=== PATIENT | female | born 1960 | race African-American/Black ===

== ENCOUNTER 2019-05-08 07:20 | Emergency (ER) | payer OTHER ==
[2019-05-08 07:36] VITALS: BMI 34.7
--- NOTE | 2019-05-08 07:43 | PDOC ---
History of Present Illness - General Chief Complaint: Pain Stated Complaint: ABDOMINAL PAIN Time Seen by Provider: 05/08/19 07:27 History Source: Patient Exam Limitations: No Limitations - History of Present Illness Initial Comments: 05/08/19 07:45 CHIEF COMPLAINT: Suprapubic and right lower quadrant pain 3 weeks HISTORY OF PRESENT ILLNESS: This is a previously healthy 58-year-old female, status post cholecystectomy in the past, who presents complaining of suprapubic and right lower quadrant pain. The symptoms started about 3 weeks ago. She went to see her resistor winder, Dr. Yi in [place]. The resistor winder examined her, did an ultrasound which he told her was normal, and prescribed doxycycline antibiotics for an infection, unspecified. Patient states she felt somewhat better on the doxycycline, had some mild diarrhea, but that resolved. Since completing the antibiotics, the pain has returned and become worse. The pain is in the suprapubic and right lower quadrant region and radiates around the right flank, in the lower lumbar region. The pain at times is somewhat constant, worse in the morning, but does not interrupt sleep. Bowel movements have been normal. Patient states mild increase in frequency of urination, but no burning or hematuria. There is no nausea or vomiting. There is no change in appetite, and patient states she has been gaining a few pounds recently. Her appetite remains very good. There is no fever or chills. REVIEW OF SYSTEMS: GENERAL/CONSTITUTIONAL: No fever or chills. No weakness. Mild increase in weight with good appetite. HEAD, EYES, EARS, NOSE AND THROAT: No change in vision. No ear pain or discharge. No sore throat. CARDIOVASCULAR: No chest pain or shortness of breath. RESPIRATORY: No cough, wheezing, or hemoptysis. GASTROINTESTINAL: No nausea, vomiting, diarrhea or constipation. No rectal bleeding. (+) Positive abdominal pain in the right lower quadrant. GENITOURINARY: No dysuria, but (+) frequency. No hematuria. MUSCULOSKELETAL: No joint or muscle swelling or pain. No neck pain. (+) Radiating Back pain. SKIN AND BREASTS: No rash or easy bruising. NEUROLOGIC: No headache, vertigo, loss of consciousness, or loss of sensation. PSYCHIATRIC: No depression or anxiety. ENDOCRINE: No increased thirst. No abnormal weight change. HEMATOLOGIC/LYMPHATIC: No anemia, easy bleeding, or history of blood clots. ALLERGIC/IMMUNOLOGIC: No hives or skin allergy. No latex allergy. Past History - Past Medical History Allergies/Adverse Reactions: Allergies Allergy/AdvReac Type Severity Reaction Status Date / Time No Known Allergies Allergy Verified 05/08/19 07:29 Home Medications: Ambulatory Orders NK [No Known Home Medication] 11/17/15 Asthma: No (denies hx of asthma) COPD: No Kidney Stones: No (no hx of stones) - Surgical History Cholecystectomy: Yes - Immunization History Td Vaccination: No - Psycho Social/Smoking Cessation Hx Smoking Status: No Smoking History: Never smoked Number of Cigarettes Smoked Daily: 0 Hx Alcohol Use: No Drug/Substance Use Hx: No Substance Use Type: None *Physical Exam - Vital Signs Last Vital Signs Temp Pulse Resp BP Pulse Ox 98.1 F 71 16 138/73 100 05/08/19 07:27 05/08/19 07:27 05/08/19 07:27 05/08/19 07:27 05/08/19 07:27 - Physical Exam Comments: 05/08/19 07:51 GENERAL: The patient is awake, alert, and fully oriented, appears mildly uncomfortable, leaning to the right with right lower quadrant pain. HEAD: Normal with no signs of trauma. EYES: Pupils equal, round and reactive to light, extraocular movements intact, sclera anicteric, conjunctiva clear. ENT: Ears normal, nares patent, oropharynx clear without exudates. Moist mucous membranes. NECK: Normal range of motion, supple without lymphadenopathy, JVD, or masses. LUNGS: Breath sounds equal, clear to auscultation bilaterally. No wheezes, and no crackles. HEART: Regular rate and rhythm, normal S1 and S2 without murmur, rub or gallop. ABDOMEN: Abdomen is mildly obese, soft, with (+) tenderness in the midline suprapubic region and throughout the right lower quadrant. There is no guarding or rebound tenderness. There is no flank tenderness posteriorly. EXTREMITIES: Normal range of motion, no edema. No clubbing or cyanosis. No cords, erythema, or tenderness. NEUROLOGICAL: Cranial nerves II through XII grossly intact. Normal speech, normal gait. PSYCH: Normal mood, normal affect. SKIN: Warm, Dry, normal turgor, no rashes or lesions noted. ED Treatment Course - LABORATORY CBC & Chemistry Diagram: 05/08/19 07:50 05/08/19 07:50 Medical Decision Making - Medical Decision Making 05/08/19 10:19 58-year-old female with a history of cholecystectomy in the past presents complaining of 3 weeks of lower abdominal pain in the suprapubic and right lower quadrant regions. There are no associated bowel or bladder symptoms. There is no fever and no change in appetite. On examination, there is right lower quadrant tenderness without guarding or rebound. There are no masses. There is no CVA tenderness. Initial impression was right lower quadrant tenderness and pain for 3 weeks. Differential diagnosis includes, acute appendicitis, right-sided diverticulitis , kidney stone, or other intra-abdominal pathology. Workup was initiated with labs, urinalysis, and CT scan with IV contrast. Laboratory studies reviewed. Blood cell count is normal at 5.2 with no left shift. Chemistry including renal and liver function is normal. Urinalysis is negative for hematuria or pyuria. CT scan of the abdomen and pelvis with IV contrast was performed and reviewed by me. Final radiology reading was reviewed as well. There are no signs of appendicitis. There are no signs of colonic inflammation. There is a radiodense structure in the left descending colon in the region of the splenic flexure, possibly representing something that she ate, but no associated signs of colonic inflammation or obstruction. Essentially, the CT scan is negative for any acute pathology. Final impression: 3 weeks of suprapubic and left lower quadrant pain without evidence of serious etiology as a cause for the pain. Final diagnosis is nonspecific left lower quadrant abdominal pain. Patient states she will follow- up with her primary care physician in the next few days, with a copy of all of her lab and imaging results, as I have instructed her. Laboratory Results - last 24 hr 05/08/19 05/08/19 05/08/19 07:50 07:50 07:50 WBC 5.2 RBC 4.32 Hgb 12.9 Hct 39.5 MCV 91.4 MCH 29.8 MCHC 32.6 RDW 13.2 Plt Count 196 MPV 9.9 Absolute Neuts (auto) 1.9 Neutrophils % 36.9 L Lymphocytes % 52.9 H Monocytes % 8.4 Eosinophils % 1.2 Basophils % 0.6 Sodium 139 Potassium 4.2 Chloride 104 Carbon Dioxide 28 Anion Gap 7 L BUN 12.0 Creatinine 0.7 Est GFR (CKD-EPI)AfAm 112.26 Est GFR (CKD-EPI)NonAf 96.86 Random Glucose 108 H Calcium 8.9 Total Bilirubin 0.8 AST 31 ALT 34 Alkaline Phosphatase 90 Total Protein 7.1 Albumin 3.8 Urine Color Yellow Urine Appearance Clear Urine pH 6.0 Urine Protein Negative Urine Glucose (UA) Negative Urine Ketones Negative Urine Blood Negative Urine Nitrite Negative Urine Bilirubin Negative Urine Urobilinogen 0.2 Ur Leukocyte Esterase Negative Discharge - Discharge Information Problems reviewed: Yes Clinical Impression/Diagnosis: Right lower quadrant abdominal pain Condition: Good Disposition: HOME - Admission No - Follow up/Referral Referrals: Ciera Garces [Primary Care Provider] - 2 Days - Patient Discharge Instructions Patient Printed Discharge Instructions: DI for Abdominal Pain-Adult Additional Instructions: Today you were evaluated for lower abdominal pain. All of the testing results came out negative. The urine shows no infection. The blood tests showed a normal white blood cell count, also suggesting no infection. The liver and kidney function tests were normal. The CT scan of the abdomen and pelvis showed no signs of appendicitis or diverticulitis. It is recommended you take Tylenol as needed and follow up with your primary care physician in 48 hours, bringing a copy of all of your results to the appointment for review and follow-up. If you have severe pain, return to the emergency department for reevaluation. - Post Discharge Activity Work/Back to School Note: Back to Work
[2019-05-08] MEDS ORDERED: SODIUM CHLORIDE 1,000 ML IV SCH (07:45)
[2019-05-08] MEDS ORDERED: ACETAMINOPHEN 1000 MG/100 ML VIAL (NON FORMULARY) IVPB ONE (08:08)
[2019-05-08] MEDS ORDERED: ACETAMINOPHEN INJECTION 100 ML IVPB ONE (08:09)
[2019-05-08 08:46] LABS: BASO % 0.6 % (0-2.0); EOS % 1.2 % (0-4.5); HEMATOCRIT 39.5 % (32.4-45.2); HEMOGLOBIN 12.9 GM/dl (10.7-15.3); LYMPH % 52.9 % (8-40); MCH 29.8 pg (25.7-33.7); MCHC 32.6 g/dl (32.0-36.0); MEAN CELL VOLUME 91.4 fl (80-96); MEAN PLT VOLUME 9.9 fl (7.5-11.1); MONO % 8.4 % (3.8-10.2); NEUT % 36.9 % (42.8-82.8); PLATELET COUNT 196 K/MM3 (134-434); RBC 4.32 M/mm3 (3.60-5.2); RDW 13.2 % (11.6-15.6); WHITE BLOOD COUNT 5.2 K/mm3 (4.0-10.8)
[2019-05-08 08:53] LABS: ALBUMIN 3.8 g/dl (3.4-5.0); BILIRUBIN,TOTAL 0.8 mg/dl (0.2-1); CALCIUM 8.9 mg/dl (8.5-10); CREATININE 0.7 mg/dl (0.55-1.3); POTASSIUM 4.2 mmol/L (3.5-5.1); TOT PROT 7.1 g/dl (6.4-8.2)
[2019-05-08 09:58] VITALS: BP 127/74; PULSE 58; TEMP 97.7
== END 2019-05-08 10:40 | disposition home or self-care (01) ==
LOC: FER 07:20
PROC: 3E033NZ Introduction of Analgesics, Hypnotics, Sedatives into Peripheral Vein, Percutaneous Approach (ICD-10-PCS; principal; 2019-05-08)
PROC: 3E0337Z Introduction of Electrolytic and Water Balance Substance into Peripheral Vein, Percutaneous Approach (ICD-10-PCS; 2019-05-08)
DX: R10.31 Right lower quadrant pain (principal)
CPT/HCPCS: 36415; 74177-TC; 80053; 81003; 85025; 99283-25; J0131; J7030

== ENCOUNTER 2022-07-09 15:24 | Emergency (ER) | payer OTHER ==
[2022-07-09 15:31] VITALS: BP 138/77; PULSE 71; RESP 18; TEMP 98.9; BMI 37.1
[2022-07-09] MEDS ORDERED: LIDOCAINE 5% TOPICAL PATCH TP ONE (16:13)
[2022-07-09] MEDS ORDERED: METHOCARBAMOL 500 MG TABLET PO ONE (16:13)
[2022-07-09] MEDS ORDERED: METHOCARBAMOL 500 MG TABLET ONE (16:20)
[2022-07-09] MEDS ORDERED: LIDOCAINE 5% TOPICAL PATCH ONE (16:21)
[2022-07-09] MEDS ORDERED: LIDOCAINE PATCH REMOVAL MC SCH (22:00)
== END 2022-07-09 16:33 | disposition home or self-care (01) ==
LOC: FER 15:24
DX: M54.41 Lumbago with sciatica, right side (principal)
CPT/HCPCS: 99283-25

== ENCOUNTER 2024-06-12 18:57 | Emergency (ER) | payer OTHER ==
[2024-06-12 19:20] VITALS: BP 136/89; PULSE 83; RESP 20; TEMP 99.1; BMI 30.7
[2024-06-12] MEDS ORDERED: ONDANSETRON 4 MG/2 ML VIAL ONE (19:37)
[2024-06-12] MEDS ORDERED: PANTOPRAZOLE SODIUM 40 MG VIAL ONE (19:37)
[2024-06-12] MEDS: SODIUM CHLORIDE 1,000 ML IV ONE (19:48)
[2024-06-12] MEDS: PANTOPRAZOLE SODIUM 40 MG VIAL IVPUSH ONE (19:48)
[2024-06-12] MEDS: ONDANSETRON 4 MG/2 ML VIAL IVPB ONE (19:49)
[2024-06-12 20:11] LABS: HEMATOCRIT 43.9 % (32.4-45.2); HEMOGLOBIN 14.4 G/dL (10.7-15.3); MCH 29.6 pg (25.7-33.7); MCHC 32.7 g/dl (32.0-36.0); MEAN CELL VOLUME 90.7 fl (80-96); PLATELET COUNT 182.7 10^3/uL (134-434); RBC 4.84 10^6/uL (3.60-5.2); RDW 13.7 % (11.6-15.6); WHITE BLOOD COUNT 6.5 10^3/uL (4.0-10.8)
[2024-06-12 20:35] LABS: ALBUMIN 4.6 g/dl (3.4-5.0); BILIRUBIN,TOTAL 0.8 mg/dl (0.2-1); CALCIUM 9.9 mg/dl (8.5-10.1); CREATININE 0.7 mg/dl (0.6-1.3); TOT PROT 7.8 g/dl (6.4-8.2)
[2024-06-12] MEDS ORDERED: ONDANSETRON *ODT* 4 MG TABLET ONE (21:03)
[2024-06-12] MEDS: ONDANSETRON *ODT* 4 MG TABLET SL ONE (21:04)
== END 2024-06-12 21:07 | disposition home or self-care (01) ==
LOC: FER 18:57
PROC: 3E033GC Introduction of Other Therapeutic Substance into Peripheral Vein, Percutaneous Approach (ICD-10-PCS; principal; 2024-06-12)
PROC: 3E033GC Introduction of Other Therapeutic Substance into Peripheral Vein, Percutaneous Approach (ICD-10-PCS; 2024-06-12)
PROC: 3E0337Z Introduction of Electrolytic and Water Balance Substance into Peripheral Vein, Percutaneous Approach (ICD-10-PCS; 2024-06-12)
DX: R10.13 Epigastric pain (principal); R11.0 Nausea
CPT/HCPCS: 36415; 80053; 82550; 82553; 83690; 84484; 85027; 93005; 99284-25; Q0162

== ENCOUNTER 2025-01-07 12:40 | Emergency (ER) | payer OTHER ==
[2025-01-07 12:55] VITALS: BP 121/64; PULSE 65; RESP 18; TEMP 98.6; BMI 30.7
[2025-01-07] MEDS ORDERED: ACETAMINOPHEN INJECTION 100 ML ONE (13:26)
[2025-01-07] MEDS ORDERED: LIDOCAINE 5% TOPICAL PATCH ONE (13:26)
[2025-01-07] MEDS: LIDOCAINE 5% TOPICAL PATCH TP ONE (13:36)
[2025-01-07] MEDS: ACETAMINOPHEN 1000 MG/100 ML BAG IVPB ONE (13:36)
[2025-01-07 13:39] LABS: ABSOLUTE IMMATURE GRANULOCYTES 0.01 x10^3/uL (0.0-0.031); BASOPHILS # 0.02 x10^3/uL (0.01-0.08); EOSINOPHIL % 1.3 % (0.7-5.8); EOSINOPHILS # 0.06 x10^3/uL (0.04-0.36); HEMATOCRIT 36.8 % (34.1-44.9); HEMOGLOBIN 11.8 g/dL (11.2-15.7); MCHC 32.1 g/dl (32.2-35.5); MEAN CELL VOLUME 92.2 fl (79.4-94.8); MEAN PLT VOLUME 11.5 fl (9.4-12.3); MONOCYTE # 0.35 x10^3/uL (0.24-0.86); MONOCYTE % 7.5 % (4.7-12.5); PLATELET COUNT 175 x10^3/uL (182-369); RDW 13.3 % (12.4-16.4)
[2025-01-07 13:51] LABS: INR 1.04 (0.83-1.09); PROTHROMBIN TIME (PATIENT) 11.5 SEC (9.7-13.0)
[2025-01-07 13:54] LABS: ACTIVATED PTT 30.7 SECONDS (25.2-36.5)
[2025-01-07 14:00] LABS: ALBUMIN 4.1 g/dl (3.4-5.0); BILIRUBIN,TOTAL 0.5 mg/dl (0.2-1); CALCIUM 9.3 mg/dl (8.5-10.1); CREATININE 0.8 mg/dl (0.6-1.3); TOT PROT 6.5 g/dl (6.4-8.2)
[2025-01-07] MEDS ORDERED: KETOROLAC TROMETHAMINE 15 MG/ML VIAL ONE (14:33)
[2025-01-07] MEDS: KETOROLAC TROMETHAMINE 30 MG/1 ML VIAL IVPUSH ONE (14:35)
[2025-01-07 16:16] LABS: HCV DIAGNOSTIC IN-HOUSE W/RFLX NON-REACTIVE (NONREACTIVE); HIV INTERPRETATION NEGATIVE (NEGATIVE)
[2025-01-07] MEDS ORDERED: LIDOCAINE PATCH REMOVAL MC ONE (22:00)
== END 2025-01-07 15:30 | disposition home or self-care (01) ==
LOC: FER 12:40
PROC: 3E033NZ Introduction of Analgesics, Hypnotics, Sedatives into Peripheral Vein, Percutaneous Approach (ICD-10-PCS; principal; 2025-01-07)
PROC: 3E0333Z Introduction of Anti-inflammatory into Peripheral Vein, Percutaneous Approach (ICD-10-PCS; 2025-01-07)
DX: R07.89 Other chest pain (principal); M25.512 Pain in left shoulder
CPT/HCPCS: 36415; 71046-TC-FY; 80053; 84484; 85025; 85610; 85730; 86803; 87389; 93005; 99285-25